=== PATIENT | male | born 1975 | race Caucasian/White ===

== ENCOUNTER 2019-09-29 15:48 | Emergency (ER) | payer OTHER ==
[~2019-09-29] VITALS: Ht 170.2 cm; Wt 88.5 kg
[2019-09-29 15:50] VITALS: BP_SYST 143
--- NOTE | 2019-09-29 16:02 | NUR ---
Patient to ER bed 03 to gown for evaluation. Side rails up.
--- NOTE | 2019-09-29 16:10 | NUR ---
Dr Hinkle at bedside examining patient
--- NOTE | 2019-09-29 16:12 | NUR ---
Pt brought by self, A&Ox4, pt presents to ER with L arm pain , pt states he is unable to extend the arm , skin pink and warm , cap refill <3. Addendum: 09/29/19 at 1836 by [email or web address] Pt denies trauma.
[2019-09-29] MEDS ORDERED: DEXAMETHASONE SOD PHOSPHATE 10 MG/ML VIAL IM ONE (17:00)
[2019-09-29] MEDS ORDERED: KETOROLAC TROMETHAMINE 60 MG/2 ML VIAL IM ONE (17:00)
--- NOTE | 2019-09-29 18:29 | NUR ---
Patient given written and verbal discharge instructions and verbalizes understanding. ER MD discussed with patient the results and treatment provided. Patient in stable condition. ID arm band removed. Rx of Prednisone and Motrin given. Patient educated on pain management and to follow up with PMD. Pain Scale 3/10 tolerable for pt. Opportunity for questions provided and answered. Medication side effect fact sheet provided.
[2019-09-29 18:30] VITALS: BP_SYST 138
== END 2019-09-29 18:30 | disposition home or self-care (01) ==
LOC: SED 15:48
DX: M77.8 Other enthesopathies, not elsewhere classified (principal); R03.0 Elevated blood-pressure reading, without diagnosis of hypertension; F17.210 Nicotine dependence, cigarettes, uncomplicated; Z71.6 Tobacco abuse counseling
CPT/HCPCS: 73080; 96372; 99283; J1100; J1885